=== PATIENT | male | born 1970 | race African-American/Black ===

== ENCOUNTER 2016-12-01 20:39 | Emergency (ER) | payer BC ==
[~2016-12-01 20:39] MED LIST: NO MEDICATIONS
== END 2016-12-01 21:08 | disposition home or self-care (01) ==
LOC: SED 20:39
DX: R03.0 Elevated blood-pressure reading, without diagnosis of hypertension (principal); Z13.89 Encounter for screening for other disorder; J45.909 Unspecified asthma, uncomplicated; Z88.0 Allergy status to penicillin
CPT/HCPCS: 82947; 99282